=== PATIENT | male | born 1970 | race Caucasian/White ===

== ENCOUNTER 2019-02-19 19:09 | Emergency (ER) | payer OTHER, SELFPAY ==
[2019-02-19 19:24] VITALS: BP 140/102; PULSE 65; RESP 18; TEMP 36.6; O2SAT 98; BMI 25.8
[2019-02-19] MEDS: MORPHINE 4 MG/ML INJ IM (19:44)
[2019-02-19] MEDS: TET,DIPH,PERTUSS(ACELL),VAC/PF 0.5 ML SYRINGE IM (19:45)
[2019-02-19] MEDS: HYDROCODONE/ACET 5/325 TABLET 2 TAB PO (20:34)
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
[2019-02-19] MEDS: HYDROCODONE/ACET 5/325 PREPACK 1 BOTTLE MISC (22:18)
[2019-02-19] MEDS: BACITRACIN OINT 0.9 GM PCKT 10 APPLIC TOP (22:19)
[2019-02-19 22:25] VITALS: BP 132/95; PULSE 54; RESP 16; O2SAT 96
[2019-02-19 22:27] VITALS: BP 132/95; PULSE 56; RESP 15; O2SAT 98
== END 2019-02-19 22:29 | disposition home or self-care (01) ==
PROVIDERS: Emergency Provider Nurse Practitioner Family
DX: T23.001A Burn of unspecified degree of right hand, unspecified site, initial encounter (principal); Z23 Encounter for immunization
CPT/HCPCS: 90471; 96372; 99283; 90715; J2270